=== PATIENT | female | born 1960 | race Two or more races ===

== ENCOUNTER 2019-10-07 13:25 | Outpatient (CLI) | payer OTHER | END 2019-10-07 13:52 | disposition home or self-care (01) | LOC: MRI 13:25 | DX: M25.562 Pain in left knee (principal) | CPT/HCPCS: 73721 ==

== ENCOUNTER 2020-05-31 10:15 | Outpatient (CLI) | payer OTHER | END 2020-05-31 10:22 | disposition home or self-care (01) | LOC: RAD 10:15 | PROVIDERS: ATTEND Orthopaedic Surgery | DX: M25.561 Pain in right knee (principal); M25.562 Pain in left knee ==